=== PATIENT | male | born 1995 | race American Indian/Alaskan Native ===

== ENCOUNTER 2017-10-13 19:01 | Emergency (ER) | payer SELFPAY ==
[2017-10-13 19:12] VITALS: BP 104/76
--- NOTE | 2017-10-13 19:46 | Emergency Department Report ---
Chief Complaint: Adult Asthma Stated Complaint: ASTHMA MEDICINE Time Seen by Provider: 10/13/17 19:34 - HPI History of Present Illness: 22-year-old -[place] male reports a past medical medical history of asthma reports that he ran out of his Proventil and. He reports he has no current wheezing at this time. He is requesting a refill of his nebulizer solution. Patient currently is a smoker. - Exam Vital Signs: Vital Signs 10/13/17 19:07 Temperature 98.7 F Pulse Rate 79 Respiratory 18 Rate Blood Pressure 104/76 O2 Sat by Pulse 99 Oximetry Physical Exam: Patient's alert and oriented 3 walking around on her cell phone able to speak in complete sentences. No use of accessory muscles. Cardiovascular S1-S2 regular rate and rhythm no murmurs appreciated Lungs are clear to auscultation bilateral no adventitious sounds no rhonchi no wheezing Abdomen soft nontender nondistended bowel sounds are normal Extremities able to move all extremities without difficulties MSE screening note: Focused history and physical exam performed. Due to findings the following was ordered: ED Disposition for MSE Condition: Stable
== END 2017-10-13 20:43 ==
LOC: ED 19:01
DX: J45.909 Unspecified asthma, uncomplicated (principal); Z53.21 Procedure and treatment not carried out due to patient leaving prior to being seen by health care provider

== ENCOUNTER 2019-12-06 18:55 | Inpatient (IN) | payer SELFPAY ==
[2019-12-06 19:32] LABS: Basophils % (Auto) 0.3 % (0.0-1.8); Eosinophils % (Auto) 0.2 % (0.0-4.3); Hematocrit 50.3 % (35.5-45.6); Hemoglobin 17.1 gm/dl (11.8-15.2); Lymphocytes # (Auto) 1.7 K/mm3 (1.2-5.4); Lymphocytes % (Auto) 15.7 % (13.4-35.0); Mean Corpuscular HGB Conc 34 % (32-34); Mean Corpuscular Volume 98 fl (84-94); Monocytes # (Auto) 1.3 K/mm3 (0.0-0.8); Monocytes % (Auto) 11.9 % (0.0-7.3); Platelet Count 325 K/mm3 (140-440); Red Blood Count 5.14 M/mm3 (3.65-5.03); Red Cell Distribution Width 14.5 % (13.2-15.2)
[2019-12-06 20:02] LABS: Alanine Aminotransferase 14 units/L (7-56); Albumin 4.6 g/dL (3.9-5); BUN/Creatinine Ratio 8; Blood Urea Nitrogen 11 mg/dL (9-20); Calcium 9.7 mg/dL (8.4-10.2); Hemolysis Index 41
[2019-12-06 20:37] LABS: Bilirubin,Urine NEG (Negative); Blood,Urine NEG (Negative); Color,Urine Amber (Yellow); Hyaline Casts,Urine 31 /LPF; Mucus,Urine FEW /HPF
[2019-12-06] MEDS ORDERED: ONDANSETRON 4 MG ODT TAB PO PRN (20:59)
[2019-12-06] MEDS ORDERED: MORPHINE 4 MG/1 ML INJ IV ONE (20:59)
[2019-12-06] MEDS ORDERED: SODIUM CHLORIDE 0.9% 1000 ML 2,000 ML IV ONE (20:59)
[2019-12-06] MEDS ORDERED: POTASSIUM CHLORIDE ER 20 MEQ TAB PO ONE (20:59)
--- NOTE | 2019-12-06 21:00 | Emergency Department Report ---
ED General Adult HPI - General Chief complaint: Abdominal Pain Stated complaint: ABD PAIN PUI?: No Time Seen by Provider: 12/06/19 20:20 Source: patient, EMS ( EMS documentation not available at time of chart dictation ), RN notes reviewed Mode of arrival: Ambulatory Limitations: No Limitations - History of Present Illness Initial comments: Patient is a 24-year-old gentleman. He is not known to myself previously. Denies fever, cough, and confirmed exposure to the coronavirus. He reports that he was admitted to [facility] a few weeks ago for 2 to 3 days, for "something in my belly", but he is not quite sure for what. To me, he denies chronic medical conditions. He presents to the ER with a complaint of nontraumatic left-sided abdominal pain. The pain is sharp, does not radiate anywhere, increases with palpation and decreases with rest. He denies headache, neck pain, chest pain, shortness of breath, testicular pain, dysuria and hematuria. He is nauseous and vomiting. His emesis is nonbloody and nonbiliou s. He also feels constipated. He denies a history of abdominal surgeries. -: Gradual, days(s), week(s) Location: abdomen Radiation: other Severity scale (0 -10): 8 Quality: other Consistency: other Improves with: other Worsens with: other Associated Symptoms: other - Related Data Previous Rx's Medication Instructions Recorded Last Taken Type Famotidine [Pepcid] 40 mg PO QHS #30 tablet 10/26/14 Unknown Rx Permethrin 5% [Acticin 5% CREAM] 60 gm TP ONCE #1 tube 10/26/14 Unknown Rx Prednisone [Prednisone 10 mg 10 mg PO .TAPER #1 tab.ds.pk 10/26/14 Unknown Rx (6-Day Pack, 21 Tabs)] Triamcinolone 0.5% [Kenalog 0.5% 1 applic TP Q8H PRN #1 tube 10/26/14 Unknown Rx Cream] Albuterol INH(or & Nicu Only) 2 puff IH QID PRN #1 inhalation 06/21/15 Unknown Rx [ProAir HFA Inhaler] Albuterol Sulfate [Albuterol 0.63% 0.63 mg IH TID PRN #1 box 06/21/15 Unknown Rx NEBS] Ibuprofen [Motrin] 400 mg PO Q8H PRN #60 tablet 06/21/15 Unknown Rx Sulfamethoxazole/Trimethoprim 1 each PO BID #14 tablet 06/21/15 Unknown Rx [Bactrim DS TAB] traMADoL [Ultram] 50 mg PO Q6HR PRN #14 tablet 06/21/15 Unknown Rx Allergies Allergy/AdvReac Type Severity Reaction Status Date / Time No Known Allergies Allergy Unverified 08/20/13 09:30 ED Review of Systems ROS: Stated complaint: ABD PAIN Other details as noted in HPI Constitutional: malaise, weakness. denies: fever Eyes: denies: eye discharge ENT: denies: congestion Respiratory: denies: wheezing Cardiovascular: denies: chest pain Gastrointestinal: abdominal pain, nausea, vomiting, constipation Genitourinary: denies: urgency, dysuria, testicular pain Musculoskeletal: denies: back pain Skin: denies: lesions Neurological: weakness Psychiatric: as per HPI Hematological/Lymphatic: as per HPI. denies: easy bleeding ED Past Medical Hx - Past Medical History Previous Medical History?: Yes Hx Asthma: Yes Additional medical history: scoliosis - Surgical History Past Surgical History?: No - Social History Smoking Status: Current Every Day Smoker Substance Use Type: Alcohol - Medications Home Medications: Home Medications Medication Instructions Recorded Confirmed Last Taken Type Famotidine [Pepcid] 40 mg PO QHS #30 tablet 10/26/14 Unknown Rx Permethrin 5% [Acticin 5% CREAM] 60 gm TP ONCE #1 tube 10/26/14 Unknown Rx Prednisone [Prednisone 10 mg 10 mg PO .TAPER #1 tab.ds.pk 10/26/14 Unknown Rx (6-Day Pack, 21 Tabs)] Triamcinolone 0.5% [Kenalog 0.5% 1 applic TP Q8H PRN #1 tube 10/26/14 Unknown Rx Cream] Albuterol INH(or & Nicu Only) 2 puff IH QID PRN #1 inhalation 06/21/15 Unknown Rx [ProAir HFA Inhaler] Albuterol Sulfate [Albuterol 0.63% 0.63 mg IH TID PRN #1 box 06/21/15 Unknown Rx NEBS] Ibuprofen [Motrin] 400 mg PO Q8H PRN #60 tablet 06/21/15 Unknown Rx Sulfamethoxazole/Trimethoprim 1 each PO BID #14 tablet 06/21/15 Unknown Rx [Bactrim DS TAB] traMADoL [Ultram] 50 mg PO Q6HR PRN #14 tablet 06/21/15 Unknown Rx ED Physical Exam - General Limitations: No Limitations General appearance: alert, in no apparent distress, cachectic - Head Head exam: Present: atraumatic, normocephalic - Eye Eye exam: Present: normal appearance, EOMI. Absent: nystagmus - ENT ENT exam: Present: normal exam, normal orophraynx, normal external ear exam - Neck Neck exam: Present: normal inspection - Respiratory Respiratory exam: Present: normal lung sounds bilaterally. Absent: respiratory distress - Cardiovascular Cardiovascular Exam: Present: normal rhythm, tachycardia, normal heart sounds. Absent: systolic murmur, diastolic murmur, rubs, gallop - GI/Abdominal GI/Abdominal exam: Present: soft, tenderness. Absent: distended, guarding, rebound, rigid, pulsatile mass - Rectal Rectal exam: Present: deferred - Extremities Exam Extremities exam: Present: normal inspection, full ROM, other (2+ pulses noted in the bilateral upper and lower extremities. There is no palpable cord. negative Homans sign. Muscular compartments are soft. The pelvis is stable.). Absent: pedal edema, calf tenderness - Back Exam Back exam: Present: normal inspection, full ROM. Absent: tenderness, CVA tenderness (R), CVA tenderness (L), paraspinal tenderness, vertebral tenderness - Neurological Exam Neurological exam: Present: alert, other (No facial droop. Tongue midline. Extraocular movements intact bilaterally. Facial sensation intact to light touch in V1, V2, V3 distribution bilaterally. 5 and a 5 strength in 4 extremities. Sensation intact to light touch in 4 extremities.). Absent: motor sensory deficit - Psychiatric Psychiatric exam: Present: anxious - Skin Skin exam: Present: warm, dry, intact, normal color. Absent: rash ED Course Vital Signs 12/06/19 12/06/19 12/06/19 18:57 20:36 20:40 Temperature 98.5 F Pulse Rate 128 H 109 H Respiratory 15 16 16 Rate Blood Pressure 124/84 Blood Pressure 116/81 [Right] O2 Sat by Pulse 100 100 100 Oximetry 12/06/19 12/06/19 12/06/19 21:00 21:30 21:34 Temperature Pulse Rate 105 H 107 H Respiratory 17 19 18 Rate Blood Pressure 116/81 111/57 Blood Pressure [Right] O2 Sat by Pulse 100 100 Oximetry 12/06/19 22:00 Temperature Pulse Rate Respiratory Rate Blood Pressure 110/82 Blood Pressure [Right] O2 Sat by Pulse Oximetry - Reevaluation(s) Reevaluation #1: 12/06/19 21:57 Differential diagnosis, including but not limited to: Pancreatitis, dehydration, electrolyte derangement, obstruction Assessment and plan: 24-year-old gentleman with elevated lipase, diffuse abdominal tenderness, most prominent in the left upper quadrant, epigastric region, found to be hypokalemic, with asymptomatic bacteriuria. Patient meets criteria for admission and hospitalization. Old medical records have been re quested. He will be given fluids, potassium repletion, pain medication and nausea medication. Emergent CT scan abdomen pelvis has been requested. We will reassess after data points have resulted. Discussed plan of care with patient, who verbalized understanding, and who is amenable to hospitalization. He does not have any historical features to suggest COVID at this time. Reevaluation #2: 12/06/19 22:21 CT scan suggest pancreatitis and enteritis. Prior medical records are reviewed and appreciated. Apparently, he was admitted to the hospital for intractable nausea and vomiting, found to have severe narrowing of the distal thoracic esophagus at the GE junction, with moderate distention of the distal thoracic esophagus. In addition, he also left AGAINST MEDICAL ADVICE. He was also found to have renal insufficiency and systemic inflammatory response syndrome. He was seen by gastroenterology, who found him to have "severe narrowing of the distal thoracic esophagus at the GE junction, with moderate distention of the distal thoracic esophagus. Primary differential considerations are achalasia versus distal esophageal stricture and endoscopic evaluation was indicated. Hospital physician is paged to arrange admission. Patient is updated. Reevaluation #3: 12/06/19 23:57 Dr Vernell Blackman to admit ED Medical Decision Making - Lab Data Result diagrams: 12/06/19 19:21 12/06/19 19:21 Vital Signs 12/06/19 12/06/19 12/06/19 18:57 20:36 20:40 Temperature 98.5 F Pulse Rate 128 H 109 H Respiratory 15 16 16 Rate Blood Pressure 124/84 Blood Pressure 116/81 [Right] O2 Sat by Pulse 100 100 100 Oximetry 12/06/19 21:34 Temperature Pulse Rate Respiratory 18 Rate Blood Pressure Blood Pressure [Right] O2 Sat by Pulse Oximetry Lab Results 12/06/19 12/06/19 12/06/19 Range/Units 19:21 19:21 20:20 WBC 10.5 (4.5-11.0) K/mm3 RBC 5.14 H (3.65-5.03) M/mm3 Hgb 17.1 H (11.8-15.2) gm/dl Hct 50.3 H (35.5-45.6) % MCV 98 H (84-94) fl MCH 33 H (28-32) pg MCHC 34 (32-34) % RDW 14.5 (13.2-15.2) % Plt Count 325 (140-440) K/mm3 Lymph % (Auto) 15.7 (13.4-35.0) % [place] % (Auto) 11.9 H (0.0-7.3) % Eos % (Auto) 0.2 (0.0-4.3) % Baso % (Auto) 0.3 (0.0-1.8) % Lymph # 1.7 (1.2-5.4) K/mm3 [place] # 1.3 H (0.0-0.8) K/mm3 Eos # 0.0 (0.0-0.4) K/mm3 Baso # 0.0 (0.0-0.1) K/mm3 Seg Neutrophils % 71.9 H (40.0-70.0) % Seg Neutrophils # 7.6 (1.8-7.7) K/mm3 Sodium 140 (137-145) mmol/L Potassium 2.9 L* (3.6-5.0) mmol/L Chloride 101.2 (98-107) mmol/L Carbon Dioxide 20 L (22-30) mmol/L Anion Gap 22 mmol/L BUN 11 (9-20) mg/dL Creatinine 1.3 (0.8-1.5) mg/dL Estimated GFR > 60 ml/min BUN/Creatinine Ratio 8 % Glucose 108 H (75-100) mg/dL Lactic Acid (0.7-2.0) mmol/L Calcium 9.7 (8.4-10.2) mg/dL Magnesium (1.7-2.3) mg/dL Total Bilirubin 1.10 (0.1-1.2) mg/dL AST > 24 (5-40) units/L ALT 14 (7-56) units/L Alkaline Phosphatase 119 (35-129) units/L Total Creatine Kinase (55-170) units/L Total Protein 7.6 (6.3-8.2) g/dL Albumin 4.6 (3.9-5) g/dL Albumin/Globulin Ratio 1.5 % Lipase 572 H (13-60) units/L Urine Color Miri (Yellow) Urine Turbidity Slightly-cloudy (Clear) Urine pH 5.0 (5.0-7.0) Ur Specific [place] 1.024 (1.003-1.030) Urine Protein 100 mg/dl (Negative) mg/dL Urine Glucose (UA) Neg (Negative) mg/dL Urine Ketones Neg (Negative) mg/dL Urine Blood Neg (Negative) Urine Nitrite Neg (Negative) Urine Bilirubin Neg (Negative) Urine Urobilinogen 4.0 (<2.0) mg/dL Ur Leukocyte Esterase Mod (Negative) Urine WBC (Auto) 182.0 H (0.0-6.0) /HPF Urine RBC (Auto) 13.0 (0.0-6.0) /HPF U Epithel Cells (Auto) 3.0 (0-13.0) /HPF Urine WBC Clumps 2+ /HPF Hyaline Casts 31 /LPF Urine Mucus Few /HPF Urine Yeast (Budding) 2+ /HPF 12/06/19 12/06/19 Range/Units 21:15 21:15 WBC (4.5-11.0) K/mm3 RBC (3.65-5.03) M/mm3 Hgb (11.8-15.2) gm/dl Hct (35.5-45.6) % MCV (84-94) fl MCH (28-32) pg MCHC (32-34) % RDW (13.2-15.2) % Plt Count (140-440) K/mm3 Lymph % (Auto) (13.4-35.0) % [place] % (Auto) (0.0-7.3) % Eos % (Auto) (0.0-4.3) % Baso % (Auto) (0.0-1.8) % Lymph # (1.2-5.4) K/mm3 [place] # (0.0-0.8) K/mm3 Eos # (0.0-0.4) K/mm3 Baso # (0.0-0.1) K/mm3 Seg Neutrophils % (40.0-70.0) % Seg Neutrophils # (1.8-7.7) K/mm3 Sodium (137-145) mmol/L Potassium (3.6-5.0) mmol/L Chloride (98-107) mmol/L Carbon Dioxide (22-30) mmol/L Anion Gap mmol/L BUN (9-20) mg/dL Creatinine (0.8-1.5) mg/dL Estimated GFR ml/min BUN/Creatinine Ratio % Glucose (75-100) mg/dL Lactic Acid 1.80 (0.7-2.0) mmol/L Calcium (8.4-10.2) mg/dL Magnesium 1.80 (1.7-2.3) mg/dL Total Bilirubin (0.1-1.2) mg/dL AST (5-40) units/L ALT (7-56) units/L Alkaline Phosphatase (35-129) units/L Total Creatine Kinase 64 (55-170) units/L Total Protein (6.3-8.2) g/dL Albumin (3.9-5) g/dL Albumin/Globulin Ratio % Lipase (13-60) units/L Urine Color (Yellow) Urine Turbidity (Clear) Urine pH (5.0-7.0) Ur Specific [place] (1.003-1.030) Urine Protein (Negative) mg/dL Urine Glucose (UA) (Negative) mg/dL Urine Ketones (Negative) mg/dL Urine Blood (Negative) Urine Nitrite (Negative) Urine Bilirubin (Negative) Urine Urobilinogen (<2.0) mg/dL Ur Leukocyte Esterase (Negative) Urine WBC (Auto) (0.0-6.0) /HPF Urine RBC (Auto) (0.0-6.0) /HPF U Epithel Cells (Auto) (0-13.0) /HPF Urine WBC Clumps /HPF Hyaline Casts /LPF Urine Mucus /HPF Urine Yeast (Budding) /HPF - EKG Data -: EKG Interpreted by Fl EKG shows normal: sinus rhythm Rate: tachycardia - EKG Data When compared to previous EKG there are: previous EKG unavailable 12/06/19 21:55 There is no prior EKG available for comparison. Sinus rhythm, tachycardia, high left ventricular voltage, atrial enlargement, poor R wave progression. The EKG is not a STEMI. There is no prior for comparison. - Radiology Data Radiology results: pending, report reviewed, image reviewed Print Report Referring Physician: JAIRON LEES Patient Name: ALCIRA DE LA FUENTE Date of : 1995 Sex: Male Report Date: 2019-12-06 Report Status: Finalized Findings [address] [address] XRay Report Signed Patient: ALCIRA DE LA FUENTE MR#: [id number] : 1995 Acct:[id number] Age/Sex: 24 / M ADM Date: 12/06/19 Loc: ED Attending Dr: Ordering Physician: JAIRON LEES MD Date of Service: 12/06/19 Procedure(s): XR chest 1V ap Accession Number(s): [id number] cc: JAIRON LEES MD Fluoro Time In Minutes: CHEST 1 VIEW 12/06/2019 9:09 PM INDICATION / CLINICAL INFORMATION: n/v weak. COMPARISON: None available. FINDINGS: SUPPORT DEVICES: None. HEART / MEDIASTINUM: No significant abnormality. LUNGS / PLEURA: No significant pulmonary or pleural abnormality. No pneumothorax. ADDITIONAL FINDINGS: Mild thoracolumbar scoliosis. IMPRESSION: 1. No acute findings. Signer Name: Bryon Gordon MD Signed: 12/06/2019 9:31 PM Workstation Name: [id number] Transcribed By: DT Dictated By: Maynor Gordon MD Electronically Authenticated By: Maynor Gordon MD Signed Date/Time: 12/06/192130 DD/ 30 TD/TT: Print Report Referring Physician: JAIRON LEES Patient Name: ALCIRA DE LA FUENTE Date of : 1995 Sex: Male Report Date: 2019-12-06 Report Status: Finalized Findings [address] [address] Cat Scan Report Signed Patient: ALCIRA DE LA FUENTE MR#: [id number] : 1995 Acct:[id number] Age/Sex: 24 / M ADM Date: 12/06/19 Loc: ED Attending Dr: Ordering Physician: JAIRON LEES MD Date of Service: 12/06/19 Procedure(s): CT abdomen pelvis w con Accession Number(s): [id number] cc: JAIRON LEES MD CT ABDOMEN AND PELVIS WITH CONTRAST INDICATION / CLINICAL INFORMATION: abd pain n/v pancreatitis uti. TECHNIQUE: Axial CT images were obtained through the abdomen and pelvis after 100 mL Omnipaque [address] scans at this location are performed using CT dose reduction for ALARA by means of automated exposure control. COMPARISON: None available. FINDINGS: LOWER CHEST: No significant abnormality. LIVER: No significant abnormality. GALLBLADDER: No significant abnormality. BILE DUCTS: No significant abnormality. PANCREAS: The tail the pancreas is edematous with mild peripancreatic edema. No organized peripancreatic fluid collection. SPLEEN: No significant abnormality. ADRENALS: No significant abnormality. RIGHT KIDNEY and URETER: No significant abnormality. LEFT KIDNEY and URETER: No significant abnormality. STOMACH and SMALL BOWEL: Small sliding-type hiatal hernia containing fluid. Fluid-filled, nondilated loops of small bowel in the pelvis. COLON: No significant abnormality. APPENDIX: No significant abnormality. PERITONEUM: Trace free fluid in the pelvis. No free air. No fluid collection. LYMPH NODES: No significant adenopathy. AORTA and ARTERIES: No significant abnormality. IVC and VEINS: No significant abnormality. URINARY BLADDER: No significant abnormality. REPRODUCTIVE ORGANS: No significant abnormality. ADDITIONAL FINDINGS: Patient has very little subcutaneous or intra-abdominal fat. SKELETAL SYSTEM: No significant abnormality. IMPRESSION: 1. Pancreatic tail edema may represent mild pancreatitis. No organized peripancreatic fluid collection. 2. Small sliding- type hiatal hernia. 3. Fluid-filled, nondilated loops of distal small bowel could represent enteritis. No bowel obstruction. Signer Name: Bryon Gordon MD Signed: 12/06/2019 10:13 PM Workstation Name: [id number] Transcribed By: DT Dictated By: Maynor Gordon MD Electronically Authenticated By: Maynor Gordon MD Signed Date/Time: 12/06/192212 DD/ 07 Critical care attestation.: If time is entered above; I have spent that time in minutes in the direct care of this critically ill patient, excluding procedure time. ED Disposition Clinical Impression: Pancreatitis, Hypokalemia, Dehydration, Nausea and vomiting Disposition: OP ADMIT IP TO THIS HOSP Is pt being admited?: Yes Does the pt Need Aspirin: No Condition: Good Referrals: PRIMARY CARE, [Primary Care Provider] - 3-5 Days
--- NOTE | 2019-12-06 21:36 | XRay Report ---
CHEST 1 VIEW 12/06/2019 9:09 PM INDICATION / CLINICAL INFORMATION: n/v weak. COMPARISON: None available. FINDINGS: SUPPORT DEVICES: None. HEART / MEDIASTINUM: No significant abnormality. LUNGS / PLEURA: No significant pulmonary or pleural abnormality. No pneumothorax. ADDITIONAL FINDINGS: Mild thoracolumbar scoliosis. IMPRESSION: 1. No acute findings. Signer Name: Bryon Gordon MD Signed: 12/06/2019 9:31 PM Workstation Name: [id number]
[2019-12-06] MEDS: POTASSIUM CHLORIDE 10 MEQ 10 MEQ/100 ML BAG IV SCH ×2 (21:39→22:47)
--- NOTE | 2019-12-06 22:17 | Cat Scan Report ---
CT ABDOMEN AND PELVIS WITH CONTRAST INDICATION / CLINICAL INFORMATION: abd pain n/v pancreatitis uti. TECHNIQUE: Axial CT images were obtained through the abdomen and pelvis after 100 mL Omnipaque [address] scans at this location are performed using CT dose reduction for ALARA by means of automated exposure control. COMPARISON: None available. FINDINGS: LOWER CHEST: No significant abnormality. LIVER: No significant abnormality. GALLBLADDER: No significant abnormality. BILE DUCTS: No significant abnormality. PANCREAS: The tail the pancreas is edematous with mild peripancreatic edema. No organized peripancrea tic fluid collection. SPLEEN: No significant abnormality. ADRENALS: No significant abnormality. RIGHT KIDNEY and URETER: No significant abnormality. LEFT KIDNEY and URETER: No significant abnormality. STOMACH and SMALL BOWEL: Small sliding-type hiatal hernia containing fluid. Fluid-filled, nondilated loops of small bowel in the pelvis. COLON: No significant abnormality. APPENDIX: No significant abnormality. PERITONEUM: Trace free fluid in the pelvis. No free air. No fluid collection. LYMPH NODES: No significant adenopathy. AORTA and ARTERIES: No significant abnormality. IVC and VEINS: No significant abnormality. URINARY BLADDER: No significant abnormality. REPRODUCTIVE ORGANS: No significant abnormality. ADDITIONAL FINDINGS: Patient has very little subcutaneous or intra-abdominal fat. SKELETAL SYSTEM: No significant abnormality. IMPRESSION: 1. Pancreatic tail edema may represent mild pancreatitis. No organized peripancreatic fluid collectio n. 2. Small sliding-type hiatal hernia. 3. Fluid-filled, nondilated loops of distal small bowel could represent enteritis. No bowel obstructi on. Signer Name: Bryon Gordon MD Signed: 12/06/2019 10:13 PM Workstation Name: [id number]
[2019-12-06] MEDS ORDERED: cefTRIAXone/NS 1 GM/50 ML 1 GM/50 ML BAG IV ONE (22:21)
[2019-12-06] MEDS ORDERED: METOCLOPRAMIDE 10 MG/2 ML INJ IV ONE (22:57)
[2019-12-06] MEDS ORDERED: METOCLOPRAMIDE 10 MG/2 ML INJ ONE (22:58)
--- NOTE | 2019-12-06 23:55 | History and Physical Report ---
History of Present Illness History of present illness: 24-year-old male with no medical problems comes emergency room for evaluation. Patient stated he has been having abdominal pain over the last 2 weeks, located in the epigastric area which he describes as a crampy pain, constant, intensity 6/10, no radiation, better with pain medications. Also complained of nausea vomiting, unable to tolerate oral intake patient stated he was admitted at [facility] on November 12 for similar symptoms , he was seen by GI, however he signed out AGAINST MEDICAL ADVICE. Patient will be admitted for pancreatitis, Review Of Systems: Constitutional: no weight loss, fever, chills Ears, eyes, nose, mouth and throat: no nasal congestion, no nasal discharge, no sinus pressure, blurry vision, diplopia Neck: No neck pain or rigidity. Cardiovascular: No palpitations, chest pain Respiratory: No shortness of breath, cough Gastrointestinal: No hematochezia Genitourinary : no dysuria, frequency Musculoskeletal: no muscle ache , joint pain Integumentary: no rash, no pruritis Neurological: no parathesias, focal weakness Endocrine: no cold or heat intolerance, no polyuria or polydipsia Hematologic/Lymphatic: no easy bruising, no easy bleeding, no gland swelling Allergic/Immunologic: no urticaria, no angioedema. PAST MEDICAL HISTORY: None PAST SURGICAL HISTORY: None SOCIAL HISTORY: Denies alcohol, tobacco, drugs FAMILY HISTORY: Hypertension Medications and Allergies Allergies Allergy/AdvReac Type Severity Reaction Status Date / Time No Known Allergies Allergy Unverified 08/20/13 09:30 Home Medications Medication Instructions Recorded Confirmed Last Taken Type Famotidine [Pepcid] 40 mg PO QHS #30 tablet 10/26/14 Unknown Rx Permethrin 5% [Acticin 5% CREAM] 60 gm TP ONCE #1 tube 10/26/14 Unknown Rx Prednisone [Prednisone 10 mg 10 mg PO .TAPER #1 tab.ds.pk 10/26/14 Unknown Rx (6-Day Pack, 21 Tabs)] Triamcinolone 0.5% [Kenalog 0.5% 1 applic TP Q8H PRN #1 tube 10/26/14 Unknown Rx Cream] Albuterol INH(or & Nicu Only) 2 puff IH QID PRN #1 inhalation 06/21/15 Unknown Rx [ProAir HFA Inhaler] Albuterol Sulfate [Albuterol 0.63% 0.63 mg IH TID PRN #1 box 06/21/15 Unknown Rx NEBS] Ibuprofen [Motrin] 400 mg PO Q8H PRN #60 tablet 06/21/15 Unknown Rx Sulfamethoxazole/Trimethoprim 1 each PO BID #14 tablet 06/21/15 Unknown Rx [Bactrim DS TAB] traMADoL [Ultram] 50 mg PO Q6HR PRN #14 tablet 06/21/15 Unknown Rx Active Meds: Active Medications Enoxaparin Sodium (Enoxaparin) 30 mg SUB-Q QDAY JATINDER Potassium Chloride (Kcl 10meq/100ml) 10 meq in 100 mls @ 100 mls/hr IV Q1H JATINDER Stop: 12/07/19 01:59 Last Admin: 12/06/19 22:47 Dose: 100 mls/hr Documented by: Ondansetron HCl (Zofran Odt) 4 mg PO Q6HR PRN PRN Reason: Nausea Last Admin: 12/06/19 21:34 Dose: 4 mg Documented by: Exam - Physical Exam Narrative exam: Gen. appearance: Patient lying in bed, no apparent distress HEENT: Normocephalic, atraumatic, pupils equally round and reactive to light, extraocular movement intact, and no sclericterus,. No JVD or thyromegaly or nodule,neck supple, no carotid bruit ,mucous membranes moist, no exudate or erythema Heart: S1, S2, regular rate and rhythm Lungs: Clear bilaterally, breathing comfortable Abdomen: Positive bowel sounds, nontender, nondistended, no organomegaly Extremity: no edema, cyanosis, clubbing Skin: No rash, nodules, warm, dry Neuro: Cranial nerves II to XII intact, speech is fluent, moves extremities, sensory intact - Constitutional Vitals: Temp Pulse Resp BP Pulse Ox 98.5 F 107 H 18 110/82 100 12/06/19 18:57 12/06/19 21:30 12/06/19 21:34 12/06/19 22:00 12/06/19 21:30 Results - Labs CBC & Chem 7: 12/06/19 19:21 12/06/19 19:21 Labs: Abnormal lab results 12/06/19 12/06/19 12/06/19 Range/Units 19:21 19:21 20:20 RBC 5.14 H (3.65-5.03) M/mm3 Hgb 17.1 H (11.8-15.2) gm/dl Hct 50.3 H (35.5-45.6) % MCV 98 H (84-94) fl MCH 33 H (28-32) pg [place] % (Auto) 11.9 H (0.0-7.3) % [place] # 1.3 H (0.0-0.8) K/mm3 Seg Neutrophils % 71.9 H (40.0-70.0) % Potassium 2.9 L* (3.6-5.0) mmol/L Carbon Dioxide 20 L (22-30) mmol/L Glucose 108 H (75-100) mg/dL Lipase 572 H (13-60) units/L Urine WBC (Auto) 182.0 H (0.0-6.0) /HPF - Imaging and Cardiology EKG: image reviewed Chest x-ray: report reviewed CT scan - abdomen: report reviewed CT scan - pelvis: report reviewed Assessment and Plan Assessment Acute pancreatitis Placed on bowel rest, start IV fluids, IV morphine GI was consulted to see the patient DVT prophylaxis
[2019-12-07] MEDS: POTASSIUM CHLORIDE 10 MEQ 10 MEQ/100 ML BAG IV SCH ×2 (00:20→01:20)
[2019-12-07] MEDS ORDERED: ACETAMINOPHEN 650 MG RECT SUPP PR PRN (01:03)
[2019-12-07] MEDS ORDERED: ONDANSETRON 4 MG/2 ML INJ IV PRN (01:03)
[2019-12-07] MEDS ORDERED: METOCLOPRAMIDE 10 MG/2 ML INJ IV PRN (01:03)
[2019-12-07] MEDS ORDERED: MORPHINE 2 MG/1 ML INJ IV PRN (01:03)
[2019-12-07] MEDS ORDERED: ACETAMINOPHEN 325 MG TAB PO PRN (01:03)
[2019-12-07] MEDS ORDERED: POTASSIUM CHLORIDE 10 MEQ 10 MEQ/100 ML BAG IV ONE (01:19)
[2019-12-07] MEDS: SODIUM CHLORIDE 0.9% 1000 ML 1,000 ML IV SCH ×3 (05:03→12:16)
[2019-12-07 06:18] LABS: Basophils # (Auto) 0.1 K/mm3 (0.0-0.1); Basophils % (Auto) 0.9 % (0.0-1.8); Eosinophils # (Auto) 0.2 K/mm3 (0.0-0.4); Eosinophils % (Auto) 2.2 % (0.0-4.3); Hematocrit 36.9 % (35.5-45.6); Hemoglobin 13.1 gm/dl (11.8-15.2); Lymphocytes # (Auto) 1.8 K/mm3 (1.2-5.4); Mean Corpuscular HGB Conc 35 % (32-34); Mean Corpuscular Volume 97 fl (84-94); Monocytes # (Auto) 1.1 K/mm3 (0.0-0.8); Monocytes % (Auto) 13.4 % (0.0-7.3); Platelet Count 253 K/mm3 (140-440); Red Blood Count 3.79 M/mm3 (3.65-5.03); Red Cell Distribution Width 14.4 % (13.2-15.2)
[2019-12-07 06:38] LABS: BUN/Creatinine Ratio 13; Blood Urea Nitrogen 9 mg/dL (9-20); Calcium 8.3 mg/dL (8.4-10.2); Hemolysis Index 3
[2019-12-07] MEDS ORDERED: cefTRIAXone/NS 1 GM/50 ML 1 GM/50 ML BAG IV SCH (10:00)
[2019-12-07] MEDS ORDERED: PANTOPRAZOLE 40 MG INJ IV SCH (10:00)
[2019-12-07] MEDS ORDERED: ENOXAPARIN 40 MG/0.4 ML INJ SUB-Q SCH (10:00)
[2019-12-07] MEDS ORDERED: ENOXAPARIN 30 MG/0.3 ML INJ SUB-Q SCH (10:00)
[2019-12-07] MEDS ORDERED: POTASSIUM CHLORIDE ER 20 MEQ TAB PO ONE ×2 (10:50→15:00)
--- NOTE | 2019-12-07 12:51 | Progress Note ---
Assessment and Plan Assessment and plan: --Acute pancreatitis Placed on bowel rest, start IV fluids, IV morphine GI was consulted to see the patient --Severe hypokalemia; replace per protocol Monitor levels --Hypomagnesemia; IV mag sulfate --UTI; empiric antibiotics follow cultures --DVT prophylaxis; Lovenox Monitor closely and adjust the management as needed Plan of care reviewed with the patient and answered all his questions History Interval history: Patient seen and examined in his room this morning Patient's chart, test reports reviewed Admitted with acute pancreatitis, n.p.o. status IV fluids, vital signs noted Hospitalist Physical - Constitutional Vitals: Temp Pulse Resp BP Pulse Ox 98.5 F 67 20 107/70 99 12/07/19 08:27 12/07/19 08:27 12/07/19 08:27 12/07/19 08:27 12/07/19 09:41 General appearance: Present: mild distress, well-nourished - EENT Eyes: Present: PERRL, EOM intact - Neck Neck: Present: supple, normal ROM - Respiratory Respiratory effort: normal Respiratory: bilateral: diminished, negative: rales, rhonchi, wheezing - Cardiovascular Rhythm: regular Heart Sounds: Present: S1 & S2 - Extremities Extremities: no ischemia, No edema - Abdominal General gastrointestinal: soft, tender (No guarding no rigidity), non-distended, normal bowel sounds - Integumentary Integumentary: Present: clear, warm - Psychiatric Psychiatric: appropriate mood/affect, cooperative - Neurologic Neurologic: moves all extremities Results - Labs CBC & Chem 7: 12/07/19 05:38 12/07/19 08:52 Labs: Laboratory Last Values WBC 8.0 K/mm3 (4.5-11.0) 12/07/19 05:38 RBC 3.79 M/mm3 (3.65-5.03) 12/07/19 05:38 Hgb 13.1 gm/dl (11.8-15.2) D 12/07/19 05:38 Hct 36.9 % (35.5-45.6) D 12/07/19 05:38 MCV 97 fl (84-94) H 12/07/19 05:38 MCH 35 pg (28-32) H 12/07/19 05:38 MCHC 35 % (32-34) H 12/07/19 05:38 RDW 14.4 % (13.2-15.2) 12/07/19 05:38 Plt Count 253 K/mm3 (140-440) 12/07/19 05:38 Lymph % (Auto) 23.0 % (13.4-35.0) 12/07/19 05:38 [place] % (Auto) 13.4 % (0.0-7.3) H 12/07/19 05:38 Eos % (Auto) 2.2 % (0.0-4.3) 12/07/19 05:38 Baso % (Auto) 0.9 % (0.0-1.8) 12/07/19 05:38 Lymph # 1.8 K/mm3 (1.2-5.4) 12/07/19 05:38 [place] # 1.1 K/mm3 (0.0-0.8) H 12/07/19 05:38 Eos # 0.2 K/mm3 (0.0-0.4) 12/07/19 05:38 Baso # 0.1 K/mm3 (0.0-0.1) 12/07/19 05:38 Seg Neutrophils % 60.5 % (40.0-70.0) 12/07/19 05:38 Seg Neutrophils # 4.8 K/mm3 (1.8-7.7) 12/07/19 05:38 Sodium 144 mmol/L (137-145) 12/07/19 05:38 Potassium 2.9 mmol/L (3.6-5.0) L* 12/07/19 08:52 Chloride 110.4 mmol/L (98-107) H 12/07/19 05:38 Carbon Dioxide 18 mmol/L (22-30) L 12/07/19 05:38 Anion Gap 19 mmol/L 12/07/19 05:38 BUN 9 mg/dL (9-20) 12/07/19 05:38 Creatinine 0.7 mg/dL (0.8-1.5) L 12/07/19 05:38 Estimated GFR > 60 ml/min 12/07/19 05:38 BUN/Creatinine Ratio 13 % 12/07/19 05:38 Glucose 65 mg/dL (75-100) L 12/07/19 05:38 Lactic Acid 1.80 mmol/L (0.7-2.0) 12/06/19 21:15 Calcium 8.3 mg/dL (8.4-10.2) L 12/07/19 05:38 Magnesium 1.60 mg/dL (1.7-2.3) L 12/07/19 08:52 Total Bilirubin 1.10 mg/dL (0.1-1.2) 12/06/19 19:21 AST > 24 units/L (5-40) 12/06/19 19:21 ALT 14 units/L (7-56) 12/06/19 19:21 Alkaline Phosphatase 119 units/L (35-129) 12/06/19 19:21 Total Creatine Kinase 64 units/L (55-170) 12/06/19 21:15 Total Protein 7.6 g/dL (6.3-8.2) 12/06/19 19:21 Albumin 4.6 g/dL (3.9-5) 12/06/19 19:21 Albumin/Globulin Ratio 1.5 % 12/06/19 19:21 Lipase 572 units/L (13-60) H 12/06/19 19:21 Urine Color Miri (Yellow) 12/06/19 20:20 Urine Turbidity Slightly-cloudy (Clear) 12/06/19 20:20 Urine pH 5.0 (5.0-7.0) 12/06/19 20:20 Ur Specific [place] 1.024 (1.003-1.030) 12/06/19 20:20 Urine Protein 100 mg/dl mg/dL (Negative) 12/06/19 20:20 Urine Glucose (UA) Neg mg/dL (Negative) 12/06/19 20:20 Urine Ketones Neg mg/dL (Negative) 12/06/19 20:20 Urine Blood Neg (Negative) 12/06/19 20:20 Urine Nitrite Neg (Negative) 12/06/19 20:20 Urine Bilirubin Neg (Negative) 12/06/19 20:20 Urine Urobilinogen 4.0 mg/dL (<2.0) 12/06/19 20:20 Ur Leukocyte Esterase Mod (Negative) 12/06/19 20:20 Urine WBC (Auto) 182.0 /HPF (0.0-6.0) H 12/06/19 20:20 Urine RBC (Auto) 13.0 /HPF (0.0-6.0) 12/06/19 20:20 U Epithel Cells (Auto) 3.0 /HPF (0-13.0) 12/06/19 20:20 Urine WBC Clumps 2+ /HPF 12/06/19 20:20 Hyaline Casts 31 /LPF 12/06/19 20:20 Urine Mucus Few /HPF 12/06/19 20:20 Urine Yeast (Budding) 2+ /HPF 12/06/19 20:20 Microbiology: Microbiology 12/06/19 21:15 Peripheral/Venous Blood Culture - Preliminary Culture in Progress 12/06/19 21:15 Peripheral/Venous Blood Culture - Preliminary Culture in Progress Young/IV: Voiding Method Toilet IV Catheter Type [Left arm] INT / Saline Lock Active Medications - Current Medications Current Medications: Generic Name Dose Route Start Last Admin Trade Name Freq PRN Reason Stop Dose Admin Acetaminophen 650 mg 12/07/19 01:03 Tylenol PO Q4H PRN Pain MILD(1-3)/Fever >100.5/VALLADARES Acetaminophen 650 mg 12/07/19 01:03 Tylenol NJ Q4H PRN Pain MILD(1-3)/Fever >100.5/VALLADARES Enoxaparin Sodium 40 mg 12/07/19 10:00 12/07/19 09:10 Enoxaparin SUB-Q 40 mg QDAY@1000 JATINDER Administration Sodium Chloride 1,000 mls @ 150 mls/hr 12/07/19 01:15 12/07/19 12:16 Nacl 0.9% 1000 Ml IV 150 mls/hr DIRECT JATINDER Administration Ceftriaxone Sodium 1 gm in 50 mls @ 100 mls/hr 12/07/19 10:00 12/07/19 09:09 Rocephin/Ns 1 Gm/50 Ml IV 100 mls/hr Q24HR JATINDER Administration Protocol Magnesium Sulfate 1 gm/ Sodium 52 mls @ 52 mls/hr 12/07/19 12:46 Chloride IV 12/07/19 13:45 ONCE ONE Metoclopramide HCl 10 mg 12/07/19 01:03 12/07/19 11:44 Reglan IV 10 mg Q6H PRN Administration Nausea And Vomiting Morphine Sulfate 2 mg 12/07/19 01:03 12/07/19 09:29 Morphine IV 2 mg Q4H PRN Administration Pain, Moderate (4-6) Ondansetron HCl 4 mg 12/07/19 01:03 Zofran IV Q4H PRN Nausea And Vomiting Pantoprazole Sodium 40 mg 12/07/19 10:00 12/07/19 09:09 Protonix IV 40 mg QDAY JATINDER Administration Potassium Chloride 40 meq 12/07/19 15:00 K-Dur PO 12/07/19 15:01 ONCE ONE Sodium Chloride 10 ml 12/07/19 10:00 12/07/19 09:11 Sodium Chloride Flush Syringe 10 Ml IV 10 ml BID JATINDER Administration Sodium Chloride 10 ml 12/07/19 01:03 Sodium Chloride Flush Syringe 10 Ml IV PRN PRN LINE FLUSH
[2019-12-07] MEDS ORDERED: MAGNESIUM SULFATE 1 GM in SODIUM CHLORIDE 0.9% 50 ML IV ONE (13:30)
--- NOTE | 2019-12-07 19:56 | Discharge Summary ---
Providers - Providers Date of Admission: 12/06/19 23:54 Date of discharge: 12/07/19 Attending physician: MARY ANN LEI 12/07/19 01:03 Consult to Physician [CONS] Routine Comment: Consulting Provider: CHIARA MARTINEZ Physician Instructions: Reason For Exam: pancreatitis Primary care physician: [employer]ELOPER Hospitalization Condition: Good Disposition: DC-07 LEFT AGAINST MED ADVICE Exam - Constitutional Vitals: Temp Pulse Resp BP Pulse Ox 97.5 F L 63 20 111/73 100 12/07/19 17:15 12/07/19 17:15 12/07/19 17:15 12/07/19 17:15 12/07/19 17:15 Plan Follow up with: PRIMARY MD MIMA [Primary Care Provider] - 3-5 Days
--- NOTE | 2019-12-07 22:59 | Consultation ---
REFERRING PHYSICIAN: Pinky Ward MD INDICATIONS: 1. Abdominal pain. 2. Pancreatitis. HISTORY OF PRESENT ILLNESS: The patient is a 24-year-old black male who presents for abdominal pain. The patient reports 2 weeks of epigastric area pain described as cramping, radiating to the left side. He reports some nausea and vomiting. He denies any lower GI symptoms including diarrhea, constipation or rectal bleeding. The patient recently was seen by [facility] where he had a CT scan, which was negative, but left AMA. The patient subsequently came to Emergency Room, was noted to have signs and symptoms, raising the possibility of pancreatitis and admitted and GI consulted. PAST SURGICAL HISTORY: None. MEDICATIONS: None. ALLERGIES: No known drug allergies. SOCIAL HISTORY: Reports social alcohol, but denies abuse. FAMILY HISTORY: Negative for colon cancer, IBD, or liver disease. REVIEW OF SYSTEMS: GENERAL: Reports some weakness. HEENT: No visual complaints or tinnitus. PULMONARY: Denies shortness of breath. No cough. No chest pain. GASTROINTESTINAL: Reports abdominal pain. All points of 13-point review of systems otherwise negative. PHYSICAL EXAMINATION: VITAL SIGNS: Temperature of 98.5, pulse 67, respirations 20, blood pressure 117/70. GENERAL: Fairly thin black male in no acute distress. HEENT: Pupils equal, round and reactive. PULMONARY: Clear to auscultation bilaterally. CARDIOVASCULAR: Normal S1, S2. ABDOMEN: Palpable soft. SKIN: No obvious rashes. LABORATORY DATA: Pertinent for white count of 8, hemoglobin and hematocrit of 13.1 and 36.9, platelet count 253. Chem-7, sodium of 144, potassium 2.9, chloride 110, CO2 of 18, BUN and creatinine of 9 and 0.7. LFTs within normal limits. Lipase of 572. CT scan of abdomen and pelvis with contrast performed on 12/06/[address] scan with some inflammation in the tail raising the possibility of mild pancreatitis. ASSESSMENT: A 24-year-old black male denies alcohol or gallbladder disease, now presents with 2 years of epigastric abdominal pain with increased lipase of 571. CT scan raised the possibility of mild pancreatitis. The patient reports he has an appetite and is unclear as to whether or not that might be his primary diagnosis, but otherwise negative. Management is noted below. PLAN: 1. Review CT scan. 2. Pancreatitis workup including lipid profile while following any other labs. 3. Probably start clear liquid diet in a.m. 4. We will follow further recommendation based on progress. JOB# [id number] BONG/[id number]
[2019-12-09 12:09] VITALS: BP 111/73
== END 2019-12-07 18:00 | disposition left against medical advice (07) | DRG 439 ==
LOC: ED 18:55 → 4A 23:54
PROVIDERS: ADMIT Internal Medicine; ATTEND Internal Medicine
DX: K85.90 Acute pancreatitis without necrosis or infection, unspecified (principal); N39.0 Urinary tract infection, site not specified; E86.0 Dehydration; E87.6 Hypokalemia; Z53.29 Procedure and treatment not carried out because of patient's decision for other reasons; E83.42 Hypomagnesemia; Z79.899 Other long term (current) drug therapy
CPT/HCPCS: 36415; 71045; 74177; 80048; 80053; 81001; 82140; 82550; 83690; 83735; 84132; 85025; 87040; 87086; 93005; G0378; C9113; J0696; J1650; J2270; J2405; J2765; J3475; J3480; J7030; Q0162; Q9967

== ENCOUNTER 2020-02-13 23:16 | Emergency (ER) | payer SELFPAY | END 2020-02-14 | disposition left against medical advice (07) | LOC: ED 23:16 | DX: R07.89 Other chest pain (principal); Z53.21 Procedure and treatment not carried out due to patient leaving prior to being seen by health care provider ==